=== PATIENT | female | born 1980 ===

== ENCOUNTER 2020-08-30 08:39 | Outpatient (CLI) | payer OTHER | END 2020-08-30 08:44 | disposition home or self-care (01) | LOC: SONOGRAMA 08:39 | PROVIDERS: ATTEND Pathology Anatomic Pathology & Clinical Pathology | DX: E07.89 Other specified disorders of thyroid (principal) ==

== ENCOUNTER 2021-04-07 08:11 | Outpatient (CLI) | payer OTHER | END 2021-04-07 08:20 | disposition home or self-care (01) | LOC: SONOGRAMA 08:11 | PROVIDERS: ATTEND Pathology Anatomic Pathology & Clinical Pathology | DX: E04.1 Nontoxic single thyroid nodule (principal) ==